=== PATIENT | female | born 1990 | race Caucasian/White ===

== ENCOUNTER → 2023-03-12 08:58 | Outpatient (BNVA) | payer MEDICAID, SELFPAY | PROVIDERS: PCP Family Medicine; Referring Provider Family Medicine; Visit Provider Specialist | DX: G43.711 Chronic migraine without aura, intractable, with status migrainosus (principal); R55 Syncope and collapse; G93.40 Encephalopathy, unspecified; G24.3 Spasmodic torticollis; H02.403 Unspecified ptosis of bilateral eyelids; F17.200 Nicotine dependence, unspecified, uncomplicated; I83.93 Asymptomatic varicose veins of bilateral lower extremities | CPT/HCPCS: 36415; 80053; 85025; 86038; 86147; 99205 ==

== ENCOUNTER 2023-08-11 14:32 | Outpatient (CLI) | payer MEDICAID, SELFPAY ==
--- NOTE | 2023-08-11 14:35 | MR_ITS ---
WS: [id number] MRI BRAIN WITHOUT CONTRAST HISTORY: G40.909 - Epilepsy, unspecified, not intractable, without... COMPARISON: None available. TECHNIQUE: Diffusion imaging, multiplanar T1, T2 and FLAIR imaging obtained. Including high-resolutio n imaging through the temporal lobes. No evidence for acute infarct or hemorrhage. Connolly-white matter differentiation is normal. No remote or acute infarcts are volume loss. Normal hippocampal formations. Ventricles and extra-axial spaces are normal. No inferior displacement of cerebellar tonsils. The sella turcica and pituitary gland are unremarkabl e. Dural venous sinuses and [place] demonstrate no abnormality on this unenhanced studies. Norm al flow voids. Paranasal sinuses: Mucoperiosteal thickening throughout the maxillary sinuses, LEFT greater than RIGH T. Mild ethmoid periosteal thickening. No air-fluid levels. Mastoid air cells: Normal. Calvarium and scalp: Intact. IMPRESSION: 1. Unremarkable noncontrast MRI brain. 2. Normal hippocampal formations. 3. Mild paranasal sinus disease, greatest involving the LEFT maxillary sinus. No air-fluid levels.
== END 2023-08-11 14:33 | disposition home or self-care (01) ==
LOC: RAD 14:33
PROVIDERS: PCP Family Medicine; Visit Provider Specialist
DX: G40.909 Epilepsy, unspecified, not intractable, without status epilepticus (principal); J32.8 Other chronic sinusitis
CPT/HCPCS: 36415; 70551; 80053; 85025; 86038; 86147; 99205